=== PATIENT | male | born 1995 | race Asian ===

== ENCOUNTER 2019-08-17 02:59 | Observation (INO) | payer SELFPAY ==
[2019-08-17] MEDS ORDERED: hydrALAZINE 20 MG/ML VIAL SLOW IVP PRN (04:25)
[2019-08-17] MEDS ORDERED: Morphine 4 MG/ML VIAL SLOW IVP PRN (04:25)
[2019-08-17] MEDS ORDERED: Dextrose 50% Abboject 50 ML SYRINGE SLOW IVP PRN (04:25)
[2019-08-17] MEDS ORDERED: Ondansetron PF 4 MG/2 ML Vial IVP PRN (04:25)
[2019-08-17] MEDS ORDERED: Dextrose 5% in Water 1,000 ML IV PRN (04:25)
[2019-08-17] MEDS ORDERED: traMADol HCl 50 MG TAB PO PRN (04:27)
[2019-08-17] MEDS ORDERED: Cyclobenzaprine 10 MG TAB PO PRN (04:27)
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
[2019-08-17] MEDS: Sodium Chloride 0.9% 1,000 ML IV SCH ×2 (05:33→15:04)
[2019-08-17] MEDS: Acetaminophen 500 MG TAB PO SCH ×3 (05:34→17:15)
[2019-08-17 05:43] VITALS: BMI 22.7
[2019-08-17] MEDS: Gabapentin 300 MG CAP PO SCH ×2 (08:49→15:10)
[2019-08-17] MEDS: traMADol HCl 50 MG TAB PO PRN ×2 (08:54→15:10)
[2019-08-17] MEDS ORDERED: Polyethylene Glycol 3350 17 GM Packet PO SCH (09:00)
[2019-08-17] MEDS ORDERED: Senokot S 8.6-50 MG TAB PO SCH (09:00)
--- NOTE | 2019-08-17 13:04 | RAD ---
EXAM: XR Foot Lt 3 View STANDARD PROVIDED CLINICAL HISTORY: Pain FINDINGS: There is no evidence for fracture or other acute osseous abnormality. Alignment appears anatomic. Cyndy nt spaces appear preserved. IMPRESSION: No evidence for an acute osseous abnormality. If there is persistent clinical concern, conservative m anagement and follow-up imaging advised.
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
[2019-08-17 18:41] VITALS: BP 106/64; TEMP 98.5
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
== END 2019-08-17 17:47 | disposition home or self-care (01) ==
LOC: ERS 02:59 → SURG A 05:19
PROVIDERS: ADMIT Surgery; ATTEND Surgery
DX: S12.500A Unspecified displaced fracture of sixth cervical vertebra, initial encounter for closed fracture (principal); F41.9 Anxiety disorder, unspecified; F32.9 Major depressive disorder, single episode, unspecified; F90.9 Attention-deficit hyperactivity disorder, unspecified type; F17.210 Nicotine dependence, cigarettes, uncomplicated; Z79.899 Other long term (current) drug therapy; V43.52XA Car driver injured in collision with other type car in traffic accident, initial encounter
CPT/HCPCS: 83605; 96360; 96361; 99285; G0378; G0390